=== PATIENT | female | born 1985 | race Caucasian/White ===

== ENCOUNTER 2020-07-22 01:36 | Emergency (ER) | payer SELFPAY ==
[2020-07-22] MEDS ORDERED: Lactated Ringers 1,000 ML IV ONE (02:37)
--- NOTE | 2020-07-22 02:39 | EDM.PDOC ---
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 The patient was having intercourse with her boyfriend approximately 2 hours ago when she started to have vaginal bleeding with clots. There was no pain at all associated with this she has no nausea or vomiting no vaginal or abdominal pain no lightheadedness no dizziness no other symptoms patient has been using. Underwear and has soaked through 3 pads in the last 2 hours. She continues to bleed and feels like it is not changing. She had a normally timed menstrual. That primarily finished the day before yesterday she had very minimal spotting yesterday and did not bleed today until she had intercourse. She is on control. - Related Data Allergies Allergy/AdvReac Type Severity Reaction Status Date / Time No Known Allergies Allergy Verified 07/22/20 02:19 Home Meds: Home Meds norgestimate-ethinyl estradioL [Carlton-Linyah 28 Tablet] 1 tab PO DAILY 07/22/20 [History] Past Medical History - Past Health History Medical/Surgical History: Denies Medical/Surgical History Social & Family History - Tobacco Use Smoking Status *Q: Never Smoker - Caffeine Use Caffeine Use: Reports: None - Recreational Drug Use Recreational Drug Use: No ED ROS GENERAL - Review of Systems Review Of Systems: See Below Free Text/Narrative/Comment: General: No fever. Skin: No rash. Eyes: No vision problems. ENT: No sore throat. Neck: No neck stiffness. Respiratory: No shortness of breath. Cardiac: No chest pain. Gastrointestinal: No nausea, vomiting or abdominal pain. Urinary: No dysuria. Musculoskeletal: No myalgias/arthralgias. Neurologic: No headache. ED EXAM, GENERAL - Physical Exam Exam: See Below Free Text/Narrative:: General Appearance: No acute distress, appears comfortable Skin: No rash HEENT: Normocephalic/atraumatic, sclera anicteric, mucous membranes moist Neck: Normal range of motion Chest and Lungs: Bilateral breath sounds, clear to auscultation Cardiovascular: Minimally tachycardic rate and regular rhythm, intact distal perfusion Abdomen: Soft, non-tender : Normal female external genitalia, large volume of bright red fresh and fresh clotted blood within the vaginal vault this was removed with a large number of onofre swabs. There is a visible and palpable left lateral vaginal wall laceration with a visible, small active pulsatile bleed the cervix appears relatively normal in appearance, with a closed external loss Musculoskeletal: No edema or tenderness Neurologic: Awake, alert, no obvious deficits, moving all extremities Psychiatric: Appropriate, cooperative Course - Vital Signs Last Recorded V/S: Last Vital Signs Temp 97.4 F 07/22/20 02:13 Pulse 109 H 07/22/20 02:17 Resp 18 07/22/20 02:13 BP 136/96 H 07/22/20 02:17 Pulse Ox 97 07/22/20 02:17 - Orders/Labs/Meds Labs: Laboratory Tests 07/22/20 07/22/20 07/22/20 Range/Units 02:00 02:47 02:47 WBC 14.45 H (4.0-11.0) K/uL RBC 4.36 (4.30-5.90) M/uL Hgb 13.5 (12.0-16.0) g/dL Hct 39.5 (36.0-46.0) % MCV 90.6 (80.0-98.0) fL MCH 31.0 (27.0-32.0) pg MCHC 34.2 (31.0-37.0) g/dL RDW Std Deviation 41.0 (28.0-62.0) fl RDW Coeff of Abhishek 12 (11.0-15.0) % Plt Count 541 H (150-400) K/uL MPV 9.90 (7.40-12.00) fL Neut % (Auto) 67.5 (48.0-80.0) % Lymph % (Auto) 24.5 (16.0-40.0) % Carlton % (Auto) 6.8 (0.0-15.0) % Eos % (Auto) 0.8 (0.0-7.0) % Baso % (Auto) 0.4 (0.0-1.5) % Neut # (Auto) 9.8 H (1.4-5.7) K/uL Lymph # (Auto) 3.5 H (0.6-2.4) K/uL Carlton # (Auto) 1.0 H (0.0-0.8) K/uL Eos # (Auto) 0.1 (0.0-0.7) K/uL Baso # (Auto) 0.1 (0.0-0.1) K/uL Nucleated RBC % 0.0 /100WBC Nucleated RBCs # 0 K/uL Sodium 140 (136-145) mmol/L Potassium 3.6 (3.5-5.1) mmol/L Chloride 104 (98-107) mmol/L Carbon Dioxide 24.1 (21.0-32.0) mmol/L BUN 16 (7.0-18.0) mg/dL Creatinine 1.2 H (0.6-1.0) mg/dL Est Cr Clr Drug Dosing TNP Estimated GFR (MDRD) 51.1 ml/min Glucose 133 H (74-106) mg/dL Calcium 8.8 (8.5-10.1) mg/dL Total Bilirubin 0.5 (0.2-1.0) mg/dL AST 20 (15-37) IU/L ALT 30 (14-63) IU/L Alkaline Phosphatase 76 (46-116) U/L Total Protein 7.4 (6.4-8.2) g/dL Albumin 3.5 (3.4-5.0) g/dL Globulin 3.9 (2.6-4.0) g/dL Albumin/Globulin Ratio 0.9 (0.9-1.6) Urine HCG, Qual NEGATIVE (NEGATIVE) Meds: Medications Discontinued Medications Generic Name Dose Route Start Last Admin Trade Name Samantha PRN Reason Stop Dose Admin Fentanyl 50 mcg 07/22/20 03:24 Fentanyl IVPUSH 07/22/20 03:25 ONETIME ONE Lactated Ringer's 1,000 mls @ 999 mls/hr 07/22/20 02:37 07/22/20 02:51 Ringers, Lactated IV 07/22/20 03:37 999 mls/hr .BOLUS ONE Administration Lidocaine/Epinephrine 10 ml 07/22/20 03:25 Xylocaine 1% With Epinephrine 1:100,000 INJECT 07/22/20 03:26 ONETIME ONE Lidocaine/Epinephrine Confirm 07/22/20 03:35 Xylocaine 1% With Epinephrine 1:100,000 Administered 07/22/20 03:36 Dose 20 ml .ROUTE .STK-MED ONE Departure - Departure Time of Disposition: 04:33 Disposition: Home, Self-Care 01 Condition: Good Clinical Impression: Non-obstetric vaginal laceration - Discharge Information *PRESCRIPTION DRUG MONITORING PROGRAM REVIEWED*: Not Applicable *COPY OF PRESCRIPTION DRUG MONITORING REPORT IN PATIENT JESUS: Not Applicable Instructions: Vaginal Laceration Referrals: PCP,None [Primary Care Provider] - Josesito Gallardo MD [Physician] - 2 Weeks Forms: ED Department Discharge Additional Instructions: Please be sure to follow the instructions provided by Dr. Ryder. Do not insert anything into your vaginal for 2 weeks, until you follow-up with Dr. Gallardo. Please call the clinic later today to schedule that appointment. The following information is given to patients seen in the emergency department who are being discharged to home. This information is to outline your options for follow-up care. We provide all patients seen in our emergency department with a follow-up referral. The need for follow-up, as well as the timing and circumstances, are variable depending upon the specifics of your emergency department visit. If you don't have a primary care physician on staff, we will provide you with a referral. We always advise you to contact your personal physician following an emergency department visit to inform them of the circumstance of the visit and for follow-up with them and/or the need for any referrals to a consulting specialist. The emergency department will also refer you to a specialist when appropriate. This referral assures that you have the opportunity for follow-up care with a specialist. All of these measure are taken in an effort to provide you with optimal care, which includes your follow-up. Under all circumstances we always encourage you to contact your private physician who remains a resource for coordinating your care. When calling for follow-up care, please make the office aware that this follow-up is from your recent emergency room visit. If for any reason you are refused follow-up, please contact the [facility] Emergency Department at and asked to speak to the emergency department charge nurse. Sepsis Event Note (ED) - Evaluation Sepsis Screening Result: No Definite Risk - Focused Exam Vital Signs: Vital Signs Temp Pulse Resp BP Pulse Ox 07/22/20 02:17 109 H 136/96 H 97 07/22/20 02:13 97.4 F 112 H 18 153/81 H 98 - Assessment/Plan Assessment:: 34-year-old female with brisk arterial bleeding but stable vital signs and a good hemoglobin that is coming from a left lateral vaginal wall laceration sustained during intercourse vaginal vault gently packed with a sterile roll of gauze but it is outside my scope of practice to repair patient normally follows with Avelina Gross. Dr. Ryder. Pt's laceration was repaired by Dr. Ryder. Pt cleared for dc. She is ambulatory with a steady gait and normal VS. Vaginal rest precautions. Pt will f/u with Dr. Gallardo in 2 weeks.
[2020-07-22 03:13] LABS: BLOOD UREA NITROGEN,BUN 16 mg/dL (7.0-18.0); CARBON DIOXIDE,CO2 24.1 mmol/L (21.0-32.0); CHLORIDE,CL 104 mmol/L (98-107); GLUCOSE RANDOM 133 mg/dL (74-106); POTASSIUM,K 3.6 mmol/L (3.5-5.1); SODIUM,NA 140 mmol/L (136-145)
[2020-07-22] MEDS ORDERED: fentaNYL 50 MCG/ML SDV IVPUSH ONE (03:24)
[2020-07-22] MEDS ORDERED: Lidocaine 1% with EPINEPHrine 1:100,000 10 ML MDV INJECT ONE (03:25)
[2020-07-22] MEDS ORDERED: Lidocaine 1% with EPINEPHrine 1:100,000 20 ML MDV ONE (03:35)
--- NOTE | 2020-07-22 04:04 | PCM.SN.2 ---
- Free Text/Narrative Note: Subjective: Called by ED provider to notify of patient with vaginal laceration obtained duri ng intercourse. Upon arrival to patient's room, she is resting in bed with stable vital signs. States that she was having intercourse with her significant other around midnight this evening and noted bright red vaginal bleeding. Denies vaginal trauma, use of new toys or genital piercings of either partner. States she had a similar episode of bleeding approximately 8 years ago when she had her first episode of intercourse but no bleeding since that time. Feels safe at home and denies history of abuse. Objective: Vital Signs - 24 hr 07/22/20 07/22/20 02:13 02:17 Temperature [ 97.4 F Temporal] Pulse, 112 H 109 H Peripheral [ Pulse Oximetry] Respiratory 18 Rate Blood Pressure 153/81 H 136/96 H [Arm] O2 Sat by Pulse 98 97 Oximetry Laboratory Results - last 24 hr 07/22/20 07/22/20 07/22/20 Range/Units 02:00 02:47 02:47 WBC 14.45 H (4.0-11.0) K/uL RBC 4.36 (4.30-5.90) M/uL Hgb 13.5 (12.0-16.0) g/dL Hct 39.5 (36.0-46.0) % MCV 90.6 (80.0-98.0) fL MCH 31.0 (27.0-32.0) pg MCHC 34.2 (31.0-37.0) g/dL RDW Std Deviation 41.0 (28.0-62.0) fl RDW Coeff of Abhishek 12 (11.0-15.0) % Plt Count 541 H (150-400) K/uL MPV 9.90 (7.40-12.00) fL Neut % (Auto) 67.5 (48.0-80.0) % Lymph % (Auto) 24.5 (16.0-40.0) % [place] % (Auto) 6.8 (0.0-15.0) % Eos % (Auto) 0.8 (0.0-7.0) % Baso % (Auto) 0.4 (0.0-1.5) % Neut # (Auto) 9.8 H (1.4-5.7) K/uL Lymph # (Auto) 3.5 H (0.6-2.4) K/uL [place] # (Auto) 1.0 H (0.0-0.8) K/uL Eos # (Auto) 0.1 (0.0-0.7) K/uL Baso # (Auto) 0.1 (0.0-0.1) K/uL Nucleated RBC % 0.0 /100WBC Nucleated RBCs # 0 K/uL Sodium 140 (136-145) mmol/L Potassium 3.6 (3.5-5.1) mmol/L Chloride 104 (98-107) mmol/L Carbon Dioxide 24.1 (21.0-32.0) mmol/L BUN 16 (7.0-18.0) mg/dL Creatinine 1.2 H (0.6-1.0) mg/dL Est Cr Clr Drug Dosing TNP Estimated GFR (MDRD) 51.1 ml/min Glucose 133 H (74-106) mg/dL Calcium 8.8 (8.5-10.1) mg/dL Total Bilirubin 0.5 (0.2-1.0) mg/dL AST 20 (15-37) IU/L ALT 30 (14-63) IU/L Alkaline Phosphatase 76 (46-116) U/L Total Protein 7.4 (6.4-8.2) g/dL Albumin 3.5 (3.4-5.0) g/dL Globulin 3.9 (2.6-4.0) g/dL Albumin/Globulin Ratio 0.9 (0.9-1.6) Urine HCG, Qual NEGATIVE (NEGATIVE) General: no acute distress Heart lungs: regular rate and rhythm, normal respiratory effort Abdomen: no tenderness to palpation : ~2cm left vaginal wall laceration. No sign of pelvic trauma. Assessment/plan: 34 year old G0 female with vaginal laceration Procedure: Reviewed risks of vaginal laceration repair including infection, bleeding and injury to surrounding structures. Questions elicited and answered. IV Fentanyl administered prior to procedure. Patient placed into lithotomy position. Sterile speculum was placed into the vagina and left lateral wall laceration was noted, measuring approximately 2cm. Small amount of oozing noted at the site. The area was cleansed with betadine ointment. 5cc of 1% Lidocaine with epinephrine was injected for pain control and hemostasis. A running locked suture was then performed with 3-0 Vicryl to approximate laceration edges. Hemostasis was noted following procedure. Per ED provider, approximately EBL 300cc while patient in ED. Scant amount of oozing during procedure. Patient tolerate procedure well. Precautions reviewed for when patient should notify clinic including fever/chills, severe pain not controlled by Tylenol or Ibuprofen or heavy vaginal bleeding with filling 2 pads per hour for more than one hour. Patient advised to follow up at [facility] in 2 weeks and nothing per vagina until cleared by pelvic exam.
== END 2020-07-22 05:51 | disposition home or self-care (01) ==
LOC: MW.ED 01:36
DX: S31.41XA Laceration without foreign body of vagina and vulva, initial encounter (principal); X58.XXXA Exposure to other specified factors, initial encounter
CPT/HCPCS: 36415; 80053; 81025; 85025; 96361; 96374; 99284; J3010; J7120; 99282